=== PATIENT | male | born 1965 | race Caucasian/White ===

== ENCOUNTER 2018-01-05 13:48 | Emergency (ER) | payer MEDICARE, MEDICAID ==
[~2018-01-05] VITALS: Ht 193 cm; Wt 108.9 kg
[2018-01-05 13:54] VITALS: BP 142/80
[2018-01-05] MEDS ORDERED: HYDROcodone/APAP 5/325 TABLET ONE (14:22)
[2018-01-05] MEDS ORDERED: HYDROcodone/APAP 5/325 TABLET PO ONE (14:30)
== END 2018-01-05 14:36 | disposition home or self-care (01) ==
LOC: ED 14:20
DX: K02.9 Dental caries, unspecified (principal); F17.200 Nicotine dependence, unspecified, uncomplicated
CPT/HCPCS: 99283